=== PATIENT | male | born 1995 | race Caucasian/White ===

== ENCOUNTER 2020-04-01 04:57 | Emergency (ER) | payer SELFPAY ==
[~2020-04-01] VITALS: Ht 175.3 cm; Wt 107.3 kg
[2020-04-01 05:42] LABS: BASOPHIL % 0.7 % (0.2-1.5); PLATELET COUNT 347 x10^3mcL (152-348); RED CELL DISTRIBUTION WIDTH 13.2 % (12.1-16.2)
[2020-04-01 05:49] LABS: CALCIUM 8.7 mg/dL (8.5-10.1); CARBON DIOXIDE 24.7 mmol/L (21-32); CHLORIDE SERUM 104 mmol/L (98-107); CREATININE SERUM 1.1 mg/dL (0.7-1.3); GFR1 > 60 mL/min; GLUCOSE SERUM 139 mg/dL (74-106); POTASSIUM SERUM 3.3 mmol/L (3.5-5.1); SODIUM SERUM 140 mmol/L (136-145)
[2020-04-01 06:01] LABS: ALBUMIN 3.6 g/dL (3.4-5.0); ALKALINE PHOSPHATASE 100 U/L (46-116); ALT/SGPT 68 U/L (16-63); AST/SGOT 7 U/L (15-37); BILIRUBIN TOTAL 0.1 mg/dL (0.20-1.00); LIPASE 73 IU/L (73-393); TOTAL PROTEIN, SERUM 7.3 g/dL (6.4-8.2)
[2020-04-01 08:11] VITALS: BP 154/99
== END 2020-04-01 08:11 | disposition home or self-care (01) ==
LOC: ED 04:57
PROVIDERS: Student in an Organized Health Care Education/Training Program
DX: N20.0 Calculus of kidney (principal)
CPT/HCPCS: J1885; J2270; J7030